=== PATIENT | male | born 1965 | race African-American/Black ===

== ENCOUNTER 2017-03-27 05:29 | Emergency (ER) | payer MEDICAID ==
[~2017-03-27] VITALS: Ht 177.8 cm; Wt 99.8 kg
--- NOTE | 2017-03-27 05:45 | NUR ---
to bed 4 bib family member c/o pt being acting bizarre. pt appears anxious, pt aaox4 no acute distress noted, resp even and unlabored. pt denies pain or discomfort at this time. pt cooperative at this time. pt denies si or hi at this time. pt denies hearing vioces but pt uncle reports that the pt maybe hearing voices. urine sample collected. er ms at bedside to eval pt with orders received. will carry out orders.
--- NOTE | 2017-03-27 05:52 | NUR ---
lab called for blood draw.
[2017-03-27 06:29] LABS: APPEARANCE,URINE CLEAR (CLEAR); BILIRUBIN,URINE 1+ (NEGATIVE); BLOOD, URINE NEGATIVE Ery/uL (NEGATIVE); COLOR,URINE YELLOW (YELLOW); KETONES,URINE TRACE (NEGATIVE); LEUKOCYTE ESTERASE ,URINE NEGATIVE (NEGATIVE); NITRITE, URINE NEGATIVE (NEGATIVE); PROTEIN,URINE TRACE mg/dl (NEGATIVE); UGLUCOSE NEGATIVE (NEGATIVE); UROBILINOGEN,URINE 0.2 EU/dL (0.2)
[2017-03-27 06:33] LABS: CALCIUM, SERUM 9.1 mg/dL (8.5-10.1); CARBON DIOXIDE 24 mmol/L (21-32); CHLORIDE 106 mmol/L (98-107); CREATININE 0.7 mg/dL (0.6-1.3); GLUCOSE 115 mg/dL (74-106); POTASSIUM 4.1 mmol/L (3.5-5.1); SODIUM SERUM 141 mmol/L (136-145); UREA NITROGEN, BLOOD 8 mg/dL (7-18)
[2017-03-27 06:35] LABS: RBC,URINE 0-2 /HPF (0-2); WBC,URINE 0-2 /HPF (0-3)
[2017-03-27 06:36] LABS: BACTERIA,URINE Rare /HPF (None Seen); SQUAMOUS EPITHELIAL CELL,UR Few /HPF (None Seen)
[2017-03-27 06:37] LABS: BASOPHILS # (AUTO) 0.1 /CMM (0.0-0.2); BASOPHILS % (AUTO) 0.5 % (0.0-2.0); EOSINOPHILS % (AUTO) 0.1 % (0.0-6.0); HEMATOCRIT 49 % (39-51); HEMOGLOBIN 16.3 g/dL (13.5-17.5); LYMPHOCYTES # (AUTO) 2.3 /CMM (0.8-4.8); LYMPHOCYTES % (AUTO) 21.5 % (20.0-44.0); MEAN CORPUSCULAR HEMOGLOBIN 29 PG (26.0-33.0); MEAN CORPUSCULAR HGB CONC 33 g/dl (31.0-36.0); MEAN CORPUSCULAR VOLUME 87 fL (80-96); MONOCYTES # (AUTO) 0.1 /CMM (0.1-1.30); MONOCYTES % (AUTO) 0.8 % (2.0-12.0); NEUTROPHILS # (AUTO) 8.4 /CMM (1.8-8.9); NEUTROPHILS % (AUTO) 77.1 % (43.0-81.0); PLATELET COUNT (AUTO) 286 /CMM (150-450); RDW COEFFICIENT OF VARIATION 13.3 (11.5-15.0); RED BLOOD CELL COUNT(AUTO) 5.65 MIL/uL (4.5-6.0); WHITE BLOOD COUNT (AUTO) 10.9 K/uL (4.3-11.0)
[2017-03-27 06:49] LABS: ALANINE AMINOTRANSFERASE 32 U/L (12-78); ALBUMIN 3.8 g/dL (3.4-5.0); ALCOHOL, BLOOD < 3 mg/dL (0-0); ALKALINE PHOSPHATASE 85 U/L (46-116); ASPARTATE AMINOTRANSFERASE 17 U/L (15-37); BILIRUBIN,DIRECT 0.1 mg/dL (0.0-0.2); BILIRUBIN,TOTAL 0.6 mg/dL (0.2-1.0); SALICYLATE 6.2 mg/dL (2.8-20.0); TOTAL PROTEIN, SERUM 8.1 g/dL (6.4-8.2)
[2017-03-27 06:52] LABS: ACETAMINOPHEN 0 ug/ml (10-30)
[2017-03-27 06:53] LABS: THYROID STIMULATING HORMONE 1.138 uIU/mL (0.358-3.74)
--- NOTE | 2017-03-27 07:16 | NUR ---
PT ON BED, AWAKE
--- NOTE | 2017-03-27 08:52 | NUR ---
PINKY RN AT BEDSIDE
[2017-03-27] MEDS ORDERED: risperiDONE 1 MG TABLET ONE ×2 (09:11→09:13)
[2017-03-27] MEDS ORDERED: LORAZEPAM 1 MG TABLET ONE (09:13)
[2017-03-27] MEDS: risperiDONE 0.25 MG TABLET PO STA ×2 (09:14→09:15)
[2017-03-27] MEDS: risperiDONE 0.25 MG TABLET PO ONE ×2 (09:15→09:17)
[2017-03-27 09:23] VITALS: BP 148/88
--- NOTE | 2017-03-27 09:23 | NUR ---
Patient discharged to home in stable condition. Written and verbal after care instructions given. Patient verbalizes understanding of instruction.
[2017-03-27] MEDS ORDERED: LORAZEPAM 1 MG TABLET PO ONE (09:30)
== END 2017-03-27 09:25 | disposition home or self-care (01) ==
LOC: ER 05:31
DX: F20.0 Paranoid schizophrenia (principal); F22 Delusional disorders; F32.9 Major depressive disorder, single episode, unspecified; F17.200 Nicotine dependence, unspecified, uncomplicated
CPT/HCPCS: 36415; 80048-TC; 80076-TC; 80305; 81000-TC; 84439-TC; 84443-TC; 85025-TC; A4606; G0480; Z7610